=== PATIENT | female | born 1955 | race Caucasian/White ===

== ENCOUNTER 2019-08-23 08:05 | Day surgery (SDC) | payer OTHER ==
[~2019-08-23] VITALS: Ht 152.4 cm; Wt 99.8 kg
[~2019-08-23 08:05] MED LIST: ACETAMINOPHEN325 M1 PO; ALLEGRA-D 12 HOU1 EA PO; BENADRYL25 MG PO; CARVEDILOL25 MG PO; CLARITIN-D 121 EACH PO; CYMBALTA30 MG PO; ECHINACEA125 MG PO; HYDROCHLOROTHIA25 MG PO; LISINOPRIL20 MG PO; NORCO 5-325 TA1 EACH PO; NORTRIPTYLINE H10 MG PO; NORVASC2.5 MG PO; OXYBUTYNIN CHLOR5 MG PO; PRILOSEC20 MG PO; REQUIP0.25 MG PO; SYNTHROID50 MCG PO; VITAMIN D35000 UNIT PO
--- NOTE | 2019-08-23 11:30 | NUR ---
08/23/19 1130 Sheets,Paulette 1125 PT ARRIVED TO PACU ON RA AND AWAKE AND TALKING TO RN. VSS.
--- NOTE | 2019-08-25 07:44 | OR ---
[facility] [address] [place], [place] [address] Signed DATE OF OPERATION: 08/23/2019 SURGEON: Allan Griffin MD PREOPERATIVE DIAGNOSIS: Carpal tunnel syndrome, left. POSTOPERATIVE DIAGNOSIS: Carpal tunnel syndrome, left. PROCEDURE: Carpal tunnel release, left. ANESTHESIA: Antoni block. SPECIMENS AND COMPLICATIONS: There were no specimens or complications. TOURNIQUET TIME: 20 minutes. WHAT WAS DONE: The patient was taken to the operating room. After Liberal block was administered, left upper extremity was positioned, prepped, and draped in a routine sterile fashion. A volar approach was made on the left wrist beginning at the distal wrist flexion crease extending distally about 1.5 cm in line with the anterior mid axial line of the 4th ray. Skin was divided sharply. Subcutaneous tissue was bluntly spread. The transverse volar carpal ligament was identified and released with the tip of a #15 blade. We then used a pair of curved tenotomy scissors to complete the median nerve decompression distally under direct vision using a Ragnell retractor. We then retrograded the retractor and released the distal 3 cm of the antebrachial fascia. This gave us an excellent release of the transverse volar carpal ligament and complete decompression of a fairly severely compromised median nerve. The wound was gently irrigated and closed in a standard fashion. A sterile dressing applied. She was awakened and taken to recovery room where she arrived in stable condition. Counts were correct and antibiotic protocols were followed. Electronically Signed By: ALLAN GRIFFIN MD 08/25/19 0744 PATIENT NAME: JODI JENSEN OPERATIVE REPORT DATE OF : 59 REPORT #: [id number] PHYSICIAN: ALLAN GRIFFIN MD PCP: WALALCE ECHOLS MD REPORT IS CONFIDENTIAL AND NOT TO BE RELEASED WITHOUT AUTHORIZATION [address] [address] Signed Allan Griffin MD [facility] /[id number] Copies: ~ Electronically Signed By: ALLAN GRIFFIN MD 08/25/19 0744 PATIENT NAME: JODI JENSEN OPERATIVE REPORT DATE OF : 59 REPORT #: [id number] PHYSICIAN: ALLAN GRIFFIN MD PCP: WALLACE ECHOLS MD REPORT IS CONFIDENTIAL AND NOT TO BE RELEASED WITHOUT AUTHORIZATION
== END 2019-08-23 12:43 | disposition home or self-care (01) ==
LOC: OPS 08:05 → DS 10:15 → OPS 10:15
PROVIDERS: Orthopaedic Surgery
PROC: 01N50ZZ Release Median Nerve, Open Approach (ICD-10-PCS; principal; 2019-08-23 10:15)
DX: G56.02 Carpal tunnel syndrome, left upper limb (principal); I10 Essential (primary) hypertension; G25.81 Restless legs syndrome; K21.9 Gastro-esophageal reflux disease without esophagitis; E03.9 Hypothyroidism, unspecified; M54.9 Dorsalgia, unspecified; G89.29 Other chronic pain; L40.9 Psoriasis, unspecified; E66.9 Obesity, unspecified; M79.7 Fibromyalgia; E11.42 Type 2 diabetes mellitus with diabetic polyneuropathy; Z79.84 Long term (current) use of oral hypoglycemic drugs; Z79.899 Other long term (current) drug therapy; Z88.6 Allergy status to analgesic agent; Z88.5 Allergy status to narcotic agent
CPT/HCPCS: 01810; J0690; J2250; J2704; J7121